=== PATIENT | female | born 1965 | race Caucasian/White ===

== ENCOUNTER 2020-09-23 18:49 | Emergency (ER) | payer OTHER ==
[~2020-09-23] VITALS: Ht 167.6 cm; Wt 99.8 kg
[2020-09-23 18:51] VITALS: BP 136/77
--- NOTE | 2020-09-23 18:51 | NUR ---
Patient BIBA BLS, transferred to bed 5. RN evaluating the patient at bedside.
--- NOTE | 2020-09-23 18:55 | NUR ---
55 Y/O F BIBA WITH C/C SUICIDAL IDEATIONS. PER EMS, PT WAS WALKING OUTSIDE A BUSINESS AND REQUESTED SOMEONE TO CALL 911 BECAUSE SHE WAS FEELING SUICIDAL. EMS STATES PT STATES SHE WANTED TO WALK INTO TRAFFIC. PT ADMITS TO 2 BEERS, DENIES DRUG USE. LAST ADMISSION TO PSYCH FACILITY 2 WEEKS AGO ON A 5150 HOLD. EMS STATES PT STATES VOLUNTARY PSYCH TODAY. LUNG SOUNDS CTA. RESPIRATIONS EVEN/UNLABORED. PMH: HTN, SHIZOPHRENIA MEDS: TRAZADONE, RESPERIDONE, UNKNOWN HTN MEDS ALLERGIES: DEPAKOTE
--- NOTE | 2020-09-23 19:20 | NUR ---
REPORT AND TRANSFER OF CARE GIVEN TO JASKARAN CARREON.
--- NOTE | 2020-09-23 19:31 | NUR ---
LAB AT BEDSIDE
--- NOTE | 2020-09-23 19:41 | NUR ---
LAB NOTIFIED THAT URINE IS READY FOR PICKUP
[2020-09-23 19:42] LABS: BASOPHILS # (AUTO) 0.1 K/uL (0.00-0.22); BASOPHILS % (AUTO) 0.8 % (0.0-2.0); EOSINOPHILS # (AUTO) 0.1 K/uL (0-0.4); EOSINOPHILS % (AUTO) 1.4 % (0.0-4.0); HEMATOCRIT 35.4 % (36-48); HEMOGLOBIN 11.5 g/dL (12.0-16.0); LYMPHOCYTES % (AUTO) 46.5 % (20.5-51.1); MEAN CORPUSCULAR HEMOGLOBIN 26 pg (27-31); MEAN CORPUSCULAR HGB CONC 33 g/dL (33-37); MEAN CORPUSCULAR VOLUME 79.1 fL (80-94); MONOCYTES # (AUTO) 0.4 K/uL (0.8-1.0); MONOCYTES % (AUTO) 4.5 % (1.7-9.3); NEUTROPHILS % (AUTO) 46.8 % (42.2-75.2); PLATELET COUNT (AUTO) 326 K/uL (140-450); RED BLOOD CELL COUNT(AUTO) 4.48 MIL/uL (4.20-5.40); RED CELL DISTRIBUTION WIDTH 18.2 % (11.6-13.7); WHITE BLOOD COUNT (AUTO) 8.6 K/uL (4.8-10.8)
[2020-09-23 19:51] LABS: APPEARANCE,URINE CLEAR (CLEAR); BILIRUBIN,URINE NEGATIVE (NEGATIVE); BLOOD, URINE NEGATIVE (NEGATIVE); COLOR,URINE YELLOW (YELLOW); LEUKOCYTE ESTERASE ,URINE NEGATIVE (NEGATIVE); NITRITE, URINE NEGATIVE (NEGATIVE); UGLUCOSE NEGATIVE (NEGATIVE)
--- NOTE | 2020-09-23 19:55 | NUR ---
PT IS LAYING DOWN, VISIBLE RISE AND FALL OF CHEST NOTED. BED IS LOCKED AND IN LOWEST POSITION. PTS BED IS WITHIN VIEW OF THE NURSING STATION. SIDE RAILSX2.
[2020-09-23 19:59] LABS: ALBUMIN 3.8 g/dL (3.4-5.0); ANION GAP 14.2 (8-16); ASPARTATE AMINOTRANSFERASE 22 U/L (15-37); CARBON DIOXIDE 26.4 mmol/L (21-32); CHLORIDE 101 mmol/L (98-107); CREATININE 0.7 mg/dL (0.6-1.3); GFR ARICAN-AMERICAN 112 mL/min (>90); GLUCOSE 122 mg/dL (74-106); POTASSIUM 3.6 mmol/L (3.5-5.1); SODIUM SERUM 138 mmol/L (136-145); TOTAL BILIRUBIN 0.1 mg/dL (0.0-1.0); UREA NITROGEN, BLOOD 7 mg/dL (7-18)
[2020-09-23 20:00] LABS: ACETAMINOPHEN < 0.5 ug/ml (10-30); SALICYLATE < 2.8 mg/dL (2.8-20.0)
[2020-09-23 20:02] LABS: BARBITURATE, URINE NEGATIVE ng/ml (NEG <=200); BENZODIAZEPINE, URINE NEGATIVE ng/mL (NEG <=200); CANNABINOID, URINE NEGATIVE ng/mL (NEG <=50); COCAINE, URINE NEGATIVE ng/mL (NEG <=300); OPIATE, URINE NEGATIVE ng/mL (NEG <=2000); PHENCYCLIDINE SCREEN,URINE NEGATIVE ng/mL (NEG <=25)
--- NOTE | 2020-09-23 20:50 | NUR ---
PT IS LAYING DOWN ON HER LEFT SIDE, VISIBLE RISE AND FALL OF CHEST NOTED. BED IS LOCKED AND IN LOWEST POSITION. PTS BED IS WITHIN VIEW OF THE NURSING STATION. SIDE RAILSX2.
--- NOTE | 2020-09-23 21:40 | NUR ---
PT IS SLEEPING ON HER LEFT SIDE, BED IS IN LOW FOWLERS POSITION, VISIBLE RISE AND FALL OF CHEST NOTED. BED IS LOCKED AND IN LOWEST POSITION. PTS BED IS WITHIN VIEW OF THE NURSING STATION. SIDE RAILSX2.
--- NOTE | 2020-09-24 01:45 | NUR ---
PT IS SLEEPING ON HER RIGHT SIDE, BED IS IN LOW FOWLERS POSITION, VISIBLE RISE AND FALL OF CHEST NOTED. BED IS LOCKED AND IN LOWEST POSITION. PTS BED IS WITHIN VIEW OF THE NURSING STATION. SIDE RAILSX2.
--- NOTE | 2020-09-24 02:50 | NUR ---
PT IS SLEEPING ON HER RIGHT SIDE, BED IS IN LOW FOWLERS POSITION, VISIBLE RISE AND FALL OF CHEST NOTED. BED IS LOCKED AND IN LOWEST POSITION. PTS BED IS WITHIN VIEW OF THE NURSING STATION. SIDE RAILSX2. NO VISIBLE DISTRESS NOTED.
--- NOTE | 2020-09-24 03:55 | NUR ---
PT IS REQUESTING A MEAL TRAY, PT RE-ORIENTED TO WHAT TIME IT WAS, BED IS IN LOW FOWLERS POSITION, VISIBLE RISE AND FALL OF CHEST NOTED. BED IS LOCKED AND IN LOWEST POSITION. PTS BED IS WITHIN VIEW OF THE NURSING STATION. SIDE RAILSX2. SI PRECAUTIONS IN PLACE
--- NOTE | 2020-09-24 04:12 | NUR ---
Serina Ricardo & Oscar swabs collected and walked to lab.
--- NOTE | 2020-09-24 05:00 | NUR ---
PT IS SLEEPING ON HER RIGHT SIDE, BED IS IN LOW FOWLERS POSITION, VISIBLE RISE AND FALL OF CHEST NOTED. BED IS LOCKED AND IN LOWEST POSITION. PTS BED IS WITHIN VIEW OF THE NURSING STATION. SIDE RAILSX2. SI PRECAUTIONS IN PLACE. NO DISTRESS NOTED AT THIS TIME
--- NOTE | 2020-09-24 07:20 | NUR ---
GAVE REPORT TO JASKARAN WHITE FOR TRANSFER OF CARE AT THIS TIME.
--- NOTE | 2020-09-24 07:21 | NUR ---
RECEIVED REPORT FROM VELMA JESSICA. TRANSFER OF CARE AT THIS TIME.
--- NOTE | 2020-09-24 07:33 | NUR ---
Note kristofer in EDM - 09/24/20 at 0735 by MED1 PT IS REQUESTING A MEAL TRAY AT THIS TIME AND ADVISED OF APPROXIMATE BREAKFAST MEAL TIMES. EQUAL CHEST RISE AND FALL. NO OBVIOUS DISTRESS NOTED. PT IN VIEW OF NURSES STATION. BED LOCKED IN LOWEST POSITION, SIDE RAILS X1.
--- NOTE | 2020-09-24 09:15 | NUR ---
PT GIVEN BREAKFAST TRAY. SITTING AND EATING QUIETLY IN BED
--- NOTE | 2020-09-24 09:21 | NUR ---
Received report. [facility] Demetrius[facility] aware patient is pending PCR Covid results.
--- NOTE | 2020-09-24 09:23 | NUR ---
DR GREENFIELD AT PT BEDSIDE FOR FURTHER EVALUATION
--- NOTE | 2020-09-24 09:34 | NUR ---
PER DR VILLASEÑOR, PT OKAY TO COME OFF 5150, PENDING DISCHARGE. DR PEDROZA MADE AWARE
--- NOTE | 2020-09-24 09:49 | NUR ---
PT SITTING IN BED, AWAKE WITH BOTH EYES OPEN. PT COMPLETED 1/2 BANANA, 1 PANCAKE, 3/4 WATER CUP OF BREAKFAST TRAY. ALL PT NEEDS MET AT THIS TIME.
[2020-09-24 09:54] VITALS: BP 136/93
--- NOTE | 2020-09-24 09:54 | NUR ---
Patient discharged with v/s stable. Written and verbal after care instructions given and explained. Patient verbalized understanding. Ambulatory with steady gait. All questions addressed prior to discharge. Advised to follow up with PMD.
== END 2020-09-24 09:54 | disposition home or self-care (01) ==
LOC: MED 18:49
DX: F10.129 Alcohol abuse with intoxication, unspecified (principal); Z20.822 Contact with and (suspected) exposure to COVID-19; R45.851 Suicidal ideations; Z88.8 Allergy status to other drugs, medicaments and biological substances; Z59.0 Homelessness
CPT/HCPCS: 36415; 80053; 80305; 81003; 81025; 85025; 87426; 99285; G0480; G0482; U0003

== ENCOUNTER 2020-09-24 18:46 | Emergency (ER) | payer OTHER ==
[~2020-09-24] VITALS: Ht 170.2 cm; Wt 81.6 kg
--- NOTE | 2020-09-24 18:50 | NUR ---
BIBA TAKEN TO BED 6
[2020-09-24 18:58] VITALS: BP 145/96
--- NOTE | 2020-09-24 19:13 | NUR ---
GAVE REPORT TO KORTNEY JESSICA. TRANSFER OF CARE AT THIS TIME.
--- NOTE | 2020-09-24 19:16 | NUR ---
RECEIVED TRANSFER OF CARE REPORT FROM CINDY JESSICA FOR CONTINUATION OF CARE.
[2020-09-24] MEDS ORDERED: LORazepam 1 MG TAB PO ONE (19:30)
--- NOTE | 2020-09-24 19:31 | NUR ---
55 YR OLD FEMALE PRESENTED TO THE ER WITH CC OF SUICIDAL IDEATION. PT IS AOX4. PT STATES HEARING VOICES TELLING PT TO WALK IN FRONT OF A CAR AND HIT HEAD ON COMPUTER. PT STATES NO INTENTION TO HURT OTHERS. PT STATES LAST ATTEMPT WAS LAST NIGHT AND STATES VOICES IS TELLING PT TO WALK IN FRONT OF CAR. PT STATES WANTING TO GO TO MENTAL FACILITY. PT SDENIES OTHER MEDICAL COMPLAINT. BED LOCKED IN LOWEST POSITION. WILL CONTINUE TO MONITOR. HISTORY- HTN, SCHIZOPHRENIA ALLERGIES- DEPAKOTE
--- NOTE | 2020-09-24 20:15 | NUR ---
PER TELEPSYCH REQUEST INITIATED
--- NOTE | 2020-09-24 22:23 | NUR ---
CARMEN, TELEMED CALLED; DUE TO HIGH CALL VOLUMES THERE IS A DELAY ON THE TELEPSYCH EVAL - NEXT ON THE QUE
--- NOTE | 2020-09-24 22:49 | NUR ---
PT FOUND ASLEEP ON LEFT SIDE IN BED. PT HAS VISIBLE EQUAL RISE AND FALL UPON RESPIRATIONS. NO SIGNS OF DISTRESS. BED LOCKED IN LOWEST POSITION. WILL CONTINUE TO MONITOR
--- NOTE | 2020-09-24 22:56 | NUR ---
PSYCHIATRIST "DR. YOU" CALLED AND WAS UPDATED ON PT STATUS.
--- NOTE | 2020-09-24 22:58 | NUR ---
Pt speaking w/ [facility] Psychiatrist Dr. Cain at this time.
[2020-09-24 23:42] LABS: BARBITURATE, URINE NEGATIVE ng/ml (NEG <=200); BENZODIAZEPINE, URINE NEGATIVE ng/mL (NEG <=200); CANNABINOID, URINE NEGATIVE ng/mL (NEG <=50); COCAINE, URINE NEGATIVE ng/mL (NEG <=300); PHENCYCLIDINE SCREEN,URINE NEGATIVE ng/mL (NEG <=25)
[2020-09-24 23:43] LABS: OPIATE, URINE NEGATIVE ng/mL (NEG <=2000)
--- NOTE | 2020-09-25 00:49 | NUR ---
PT FOUND ASLEEP ON LEFT SIDE IN BED. PT HAS VISIBLE EQUAL RISE AND FALL UPON RESPIRATION. NO SIGNS OF DISTRESS. BED LOCKED IN LOWEST POSITION. WILL CONTINUE TO MONITOR.
--- NOTE | 2020-09-25 00:56 | NUR ---
PT WAS PROVIDED A CUP OF WATER.
--- NOTE | 2020-09-25 03:57 | NUR ---
PT WAS PROVIDED A SANDWHICH AND A CUP OF WATER.
--- NOTE | 2020-09-25 06:27 | NUR ---
PT FOUND AWAKE ON LEFT SIDE IN BED. PT STATES NO PAIN AND NO DISTRESS. PT HAS VISIBLE EQUAL RISE AND FALL UPON RESPIRATION.
[2020-09-25 06:37] VITALS: BP 149/91
--- NOTE | 2020-09-25 06:37 | NUR ---
Patient discharged with v/s stable. Written and verbal after care instructions given and explained. Patient alert, oriented and verbalized understanding of instructions. Ambulatory with steady gait. All questions addressed prior to discharge. ID band removed. Patient advised to follow up with PMD. Rx of LORAZEPAM given. Patient educated on indication of medication including possible reaction and side effects. Opportunity to ask questions provided and answered.
== END 2020-09-25 06:37 | disposition home or self-care (01) ==
LOC: MED 18:46
DX: R45.851 Suicidal ideations (principal); I10 Essential (primary) hypertension; Z88.2 Allergy status to sulfonamides
CPT/HCPCS: 80305; 99285